=== PATIENT | female | born 1990 | race Caucasian/White ===

== ENCOUNTER 2024-11-09 15:37 | Emergency (ER) | payer OTHER ==
[~2024-11-09] VITALS: Ht 165.1 cm; Wt 72.8 kg
[~2024-11-09 15:37] MED LIST: BUPRENORPHINE HC8 MG SL; CEFPODOXIME PR200 MG PO; CIPRO500 MG PO; DHA PRENATAL200 MG PO/IV; MACROBID 100 M100 MG PO; MIRENA1 EACH IY; NAPROSYN500 MG PO; PRENATAL-FOLIC1 EACH PO/IV; PYRIDIUM200 MG PO; SUBUTEX PO; SUBUTEX2 MG PO; SUBUTEX8 MG; VITAFOL-OB+DHA1 EACH PO; WELLBUTRIN XL300 MG PO
[2024-11-09] MEDS ORDERED: NORETHIN ESTRA PO (15:52)
[2024-11-09] MEDS ORDERED: SUBLOCADE100 MG/0.5 (15:53)
[2024-11-09 16:40] LABS: INFLUENZA B NAA NEGATIVE (NEGATIVE); RESPIRATORY SYNCYTIAL VIR NAA NEGATIVE (NEGATIVE)
[2024-11-09 17:38] VITALS: BP 119/73
== END 2024-11-09 17:38 | disposition home or self-care (01) ==
LOC: ED 15:37
PROVIDERS: Emergency Medicine
DX: J10.1 Influenza due to other identified influenza virus with other respiratory manifestations (principal); F17.200 Nicotine dependence, unspecified, uncomplicated; Z88.0 Allergy status to penicillin; Z88.2 Allergy status to sulfonamides; Z88.5 Allergy status to narcotic agent; Z79.899 Other long term (current) drug therapy
CPT/HCPCS: 71045; 87502; 99283-25; U0002

== ENCOUNTER 2025-10-20 12:33 | Emergency (ER) | payer OTHER ==
[~2025-10-20] VITALS: Ht 165.1 cm; Wt 73.9 kg
[~2025-10-20 12:33] MED LIST changes: +NORETHIN ESTRA PO; +SUBLOCADE100 MG/0.5
[2025-10-20 14:09] LABS: BLOOD/HGB, URINE SMALL (Negative); KETONE, URINE NEGATIVE (Negative); LEUK ESTERASE, URINE LARGE (negative); NITRITE, URINE NEGATIVE (negative)
[2025-10-20 14:15] LABS: BACTERIA, URINE 1+ /hpf (negative); CASTS, URINE NONE SEEN \\lpf; CRYSTALS, URINE NONE SEEN (0-1+); EPITHELIAL CELLS, URINE NONE SEEN /lpf (0-1+); REFLEX CULTURE, URINE Yes (No)
[2025-10-20] MEDS ORDERED: PYRIDIUM200 MG PO (15:21)
[2025-10-20] MEDS ORDERED: CEPHALEXIN500 M1 PO (15:21)
[2025-10-20] MEDS ORDERED: CEPHALEXIN MONOHYDRATE 500 MG CAP PO ONE (15:30)
[2025-10-20] MEDS ORDERED: PHENAZOPYRIDINE HCL 100 MG TAB PO ONE (15:30)
[2025-10-20 15:49] VITALS: BP 104/62
== END 2025-10-20 15:51 | disposition home or self-care (01) ==
LOC: ED 12:33
PROVIDERS: Emergency Medicine
DX: O23.42 Unspecified infection of urinary tract in pregnancy, second trimester (principal); N39.0 Urinary tract infection, site not specified; Z3A.14 14 weeks gestation of pregnancy; F17.200 Nicotine dependence, unspecified, uncomplicated; Z88.0 Allergy status to penicillin; Z88.5 Allergy status to narcotic agent; Z79.899 Other long term (current) drug therapy
CPT/HCPCS: 81001; 87088; 87186; 99283; A9270